=== PATIENT | female | born 1985 | race Caucasian/White ===

== ENCOUNTER 2024-02-07 23:11 | Inpatient (IN) ==
[2024-02-07] MEDS: Famotidine IV 10 MG/ML 2 ml VIAL (20 mg) IV SLOW PU ONE (23:54)
[2024-02-07] MEDS: Al Hydrox/Mg Hydrox/Simet LIQ 30 ML UDC PO ONE (23:54)
[2024-02-07] MEDS: Lactated Ringers 1000 ml BAG 1,000 ML IV ONE (23:54)
[2024-02-08 00:05] LABS: ABS Basophils 0.1 10^3/uL (0.0-0.1); ABS Lymphocytes 1.5 10^3/uL (1.0-4.8); ABS Monocytes 0.4 10^3/uL (0.0-0.9); ABS Neutrophils 4.6 10^3/uL (1.5-7.6); ABS Nucleated RBC 0.01 10^3/ul; Eosinophil % 0.1 %; Hematocrit 48.2 % (35-45); Hemoglobin 16.3 g/dL (11.5-14.3); Lymphocyte % 22.2 %; Mean Corpuscular Hemoglobin 30.1 pg (27-33); Mean Corpuscular Hgb Conc 33.9 g/dL (31-36); Mean Corpuscular Volume 88.9 fL (80-97); Nucleated Red Blood Cells % 0.1 %/100WBC (0.0-0.8); Platelet Count 380 10^3/uL (150-450); Red Blood Count 5.43 10^6/uL (3.63-4.92); Red Cell Distribution Width 13.8 % (12-17); White Blood Count 6.5 10^3/uL (3.8-11.8)
[2024-02-08 00:27] LABS: INR 0.9 (0.85-1.14)
[2024-02-08 00:29] LABS: High Sens Troponin Baseline 8 pg/mL (<15)
[2024-02-08 00:57] LABS: ALT 88 U/L (7-52); AST 60 U/L (13-39); Albumin 4.9 g/dL (3.2-5.2); Albumin/Globulin Ratio 1.6 (1-3); Alcohol, S 306 mg/dL (<13); Alkaline Phosphatase 84 U/L (35-149); Anion Gap 23 mmol/L (2-16); Blood Urea Nitrogen 9 mg/dL (6-24); C Reactive Protein 5.56 mg/L (<8.01); CO2 Carbon Dioxide 21 mmol/L (22-32); Chloride 93 mmol/L (101-111); Globulin 3.1 g/dL (2-4); Glucose 275 mg/dL (70-100); Lipase 14 U/L (11.0-82.0); Potassium 3.6 mmol/L (3.5-5.0); Sodium 137 mmol/L (135-145); Total Bilirubin 0.6 mg/dL (0.2-1.0); eGFR CKD-EPI 118.5 (>60)
[2024-02-08 01:02] LABS: HCG Pregnancy < 0.60 mIU/mL
[2024-02-08] MEDS: Lactated Ringers 1000 ml BAG 1,000 ML IV ONE (02:37)
[2024-02-08 02:40] LABS: High Sensitivity Troponin 1 Hr 8 pg/mL (<15)
[2024-02-08] MEDS ORDERED: LORazepam 2 mg VIAL 1 ml ONE (03:15)
[2024-02-08] MEDS: LORazepam 2 mg VIAL 1 ml IV PUSH SCH (03:22)
[2024-02-08] MEDS: Iohexol 350 (CONTRAST) 500 ML MDV IV ONE (04:10)
[2024-02-08] MEDS: Morphine 4 MG/ML VIAL (1 ml) IV ONE (04:26)
[2024-02-08] MEDS: Thiamine 100 MG/ML 2 ml VIAL (200 mg) IM ONE (04:26)
[2024-02-08] MEDS: Multivitamins/Minerals TAB PO SCH (04:27)
[2024-02-08] MEDS: Al Hydrox/Mg Hydrox/Simet LIQ 30 ML UDC PO ONE (06:34)
[2024-02-08] MEDS ORDERED: Ondansetron 4 mg VIAL 2 MG/ML 2 ml VIAL IV PRN (07:29)
[2024-02-08] MEDS: Lactated Ringers 1000 ml BAG 1,000 ML IV SCH (07:38)
[2024-02-08 10:10] LABS: Urine Appearance Clear; Urine Bacteria Absent /HPF (Absent); Urine Bilirubin Negative (Negative); Urine Blood Negative (Negative); Urine Color Light-Yellow; Urine Glucose 4+ (>=1000 mg/dL) (Negative); Urine Ketones 2+ (Negative); Urine Nitrite Negative (Negative); Urine Protein 1+ (>=30 mg/dL) (Negative); Urine Red Blood Cell Trace(0-2/hpf) /HPF (0-Trace); Urine Squamous Epithelial Cell Present /HPF (Absent); Urine Urobilinogen Negative (Negative); Urine White Blood Cell Trace(0-5/hpf) /HPF (0-Trace); Urine pH 6.5 (5.0-8.0)
[2024-02-08] MEDS: Al Hydrox/Mg Hydrox/Simet LIQ 30 ML UDC PO PRN (10:48)
[2024-02-09] MEDS: Calcium Carb (TUMS) 500 mg CHEW TAB PO PRN (18:14)
[2024-02-10 09:32] VITALS: BP 108/66
== END 2024-02-10 13:20 | disposition left against medical advice (07) | DRG 894 ==
LOC: EDHOLD 23:11 → ED 23:11 → MED 02-08 11:38
PROVIDERS: ADMIT Student in an Organized Health Care Education/Training Program; ATTEND Student in an Organized Health Care Education/Training Program

== ENCOUNTER 2024-05-22 14:46 | Observation (INO) ==
[2024-05-22] MEDS: diazePAM INJ CARPUJECT 5 MG/ML SYRINGE IV ONE ×2 (15:19→16:16)
[2024-05-22] MEDS: Al Hydrox/Mg Hydrox/Simet LIQ 30 ML UDC PO ONE ×2 (15:19→22:49)
[2024-05-22] MEDS: Lactated Ringers 1000 ml BAG 1,000 ML IV ONE ×2 (15:20→18:11)
[2024-05-22] MEDS: Ondansetron 4 mg VIAL 2 MG/ML 2 ml VIAL IV ONE (15:20)
[2024-05-22 15:40] LABS: ABS Lymphocytes 1.4 10^3/uL (1.0-4.8); ABS Monocytes 0.5 10^3/uL (0.0-0.9); ABS Neutrophils 6.3 10^3/uL (1.5-7.6); ABS Nucleated RBC 0.01 10^3/ul; Eosinophil % 0.1 %; Hematocrit 45.9 % (35-45); Hemoglobin 15.7 g/dL (11.5-14.3); Lymphocyte % 16.5 %; Mean Corpuscular Hemoglobin 28.8 pg (27-33); Mean Corpuscular Hgb Conc 34.2 g/dL (31-36); Mean Corpuscular Volume 84.2 fL (80-97); Mean Platelet Volume 8.1 fL (7.5-11.2); Nucleated Red Blood Cells % 0.1 %/100WBC (0.0-0.8); Platelet Count 363 10^3/uL (150-450); Red Blood Count 5.45 10^6/uL (3.63-4.92); Red Cell Distribution Width 14.7 % (12-17); White Blood Count 8.2 10^3/uL (3.8-11.8)
[2024-05-22 15:49] LABS: INR 0.92 (0.85-1.14)
[2024-05-22 16:34] LABS: Alcohol, S 38 mg/dL (<13); Magnesium 1.5 mg/dL (1.9-2.7)
[2024-05-22 16:37] LABS: HCG Pregnancy < 0.60 mIU/mL
[2024-05-22 16:38] LABS: Albumin 4.9 g/dL (3.5-5.7); Albumin/Globulin Ratio 1.5 (1-3); Calcium 10.9 mg/dL (8.6-10.3); Creatinine, Serum 0.62 mg/dL (0.51-0.95); Globulin 3.2 g/dL (2-4); Potassium 4.1 mmol/L (3.5-5.0); Total Bilirubin 0.8 mg/dL (0.2-1.0); Total Protein 8.1 g/dL (6.4-8.9); eGFR CKD-EPI 117.6 (>60)
[2024-05-22 17:07] LABS: High Sensitivity Troponin 1 Hr 6 pg/mL (<15)
[2024-05-22] MEDS: Magnesium Sulfate 2 gm BAG 2 GM/50 ML BAG IVPB ONE (18:11)
[2024-05-22 18:45] LABS: C Reactive Protein 7.21 mg/L (<8.01)
[2024-05-22 20:12] LABS: Lipase 10 U/L (11.0-82.0)
[2024-05-22] MEDS ORDERED: Lorazepam PYXIS KEY PRN (20:18)
[2024-05-22] MEDS ORDERED: Thiamine 100 MG/ML 2 ml VIAL (200 mg) IV ONE (21:08)
[2024-05-22] MEDS ORDERED: Dextrose 50% Syringe 50 ml 25 GM/50 ML SYRINGE IV PUSH PRN (21:30)
[2024-05-22] MEDS: Lactated Ringers 1000 ml BAG 1,000 ML IV SCH (22:04)
[2024-05-22] MEDS: Thiamine IV 100 MG in NS 0.9% 50 ML IV ONE (22:51)
[2024-05-23] MEDS: LORazepam 2 mg VIAL 1 ml IV PUSH PRN
[2024-05-23 07:08] LABS: Anion Gap 12 mmol/L (2-16); Blood Urea Nitrogen 9 mg/dL (6-24); CO2 Carbon Dioxide 25 mmol/L (22-32); Calcium 9.1 mg/dL (8.6-10.3); Chloride 95 mmol/L (101-111); Creatinine, Serum 0.61 mg/dL (0.51-0.95); Glucose 188 mg/dL (70-100); Magnesium 1.9 mg/dL (1.9-2.7); Sodium 132 mmol/L (135-145)
[2024-05-23 08:07] LABS: ABS Monocytes 0.4 10^3/uL (0.0-0.9); ABS Neutrophils 1.9 10^3/uL (1.5-7.6); Eosinophil % 0.7 %; Hematocrit 40.9 % (35-45); Lymphocyte % 45.2 %; Mean Corpuscular Hemoglobin 29.1 pg (27-33); Mean Corpuscular Hgb Conc 34.3 g/dL (31-36); Mean Corpuscular Volume 84.8 fL (80-97); Mean Platelet Volume 8.2 fL (7.5-11.2); Platelet Count 246 10^3/uL (150-450); Red Blood Count 4.82 10^6/uL (3.63-4.92); Red Cell Distribution Width 15.1 % (12-17); White Blood Count 4.3 10^3/uL (3.8-11.8)
[2024-05-24 14:24] VITALS: BP 122/83
== END 2024-05-24 16:32 | disposition home or self-care (01) ==
LOC: EDHOLD 14:46 → ED 14:46 → MEDTELE 21:27
PROVIDERS: ADMIT Student in an Organized Health Care Education/Training Program; ATTEND Hospitalist